=== PATIENT | male | born 1970 | race Caucasian/White ===

== ENCOUNTER 2017-01-09 07:45 | Emergency (ER) | payer OTHER ==
[~2017-01-09] VITALS: Ht 195.6 cm; Wt 120.3 kg
[~2017-01-09 07:45] MED LIST: AMBIEN10 MG PO; AMBIEN5 MG PO; AMOXICILLIN PO; ASPIRIN81 M2 PO; BACTRIM,SEPT1 TABLET PO; BENTYL20 MG PO; CLINDAMYCIN HC300 MG PO; COUMADIN,JANTOV10 MG PO; COUMADIN,JANTOVE4 MG PO; COUMADIN,JANTOVE5 MG PO; COUMADIN1 MG PO; COUMADIN2.5 MG PO; COUMADIN7.5 MG PO; ENDOCET 10-3251 EACH; ENDOCET 5-3251 EACH PO; FENTANYL1 EAC5; LISINOPRIL10 MG PO; LOVENOX120 MG/0.8 SC; MIRALAX17 GM PO; NOHOMEMEDS; OXYCODONE HCL15 MG PO; PERCOCET 5-3251 EACH PO; PERCOCET 5/31 TABLET PO; PREDNISONE20 MG PO; PROBIOTIC1 EAC1 PO; TRAMADOL HCL100 MG PO; TRAMADOL HCL50 MG; TRAMADOL HCL50 MG PO; VALIUM5 MG PO; WARFARIN SODIUM4 MG; WARFARIN SODIUM6 MG PO; ZESTRIL10 MG PO
[2017-01-09] MEDS ORDERED: PERCOCET 5/31 TABLET PO (08:31)
[2017-01-09 08:45] VITALS: BP 139/90
[2017-01-09] MEDS ORDERED: CYCLOBENZAPRINE10 MG PO (09:30)
== END 2017-01-09 09:30 | disposition home or self-care (01) ==
LOC: EME 07:45
DX: S02.5XXA Fracture of tooth (traumatic), initial encounter for closed fracture (principal); X58.XXXA Exposure to other specified factors, initial encounter; Y93.89 Activity, other specified
CPT/HCPCS: 99281; 99284

== ENCOUNTER 2017-03-24 23:56 | Emergency (ER) | payer OTHER ==
[~2017-03-24] VITALS: Ht 195.6 cm; Wt 120.2 kg
[~2017-03-24 23:56] MED LIST changes: +CYCLOBENZAPRINE10 MG PO
[2017-03-24 23:57] VITALS: BP 129/95
[2017-03-25] MEDS ORDERED: MOTRIN600 MG PO (00:36)
[2017-03-25] MEDS ORDERED: AUGMENTIN875 MG PO (00:36)
== END 2017-03-25 00:49 | disposition home or self-care (01) ==
LOC: EME 23:56 → EXP 23:56
DX: K14.0 Glossitis (principal); I10 Essential (primary) hypertension; Z86.711 Personal history of pulmonary embolism; Z86.718 Personal history of other venous thrombosis and embolism; Z86.73 Personal history of transient ischemic attack (TIA), and cerebral infarction without residual deficits; F17.200 Nicotine dependence, unspecified, uncomplicated
CPT/HCPCS: 99281; 99283

== ENCOUNTER 2017-09-07 20:08 | Emergency (ER) | payer OTHER ==
[~2017-09-07] VITALS: Ht 195.6 cm; Wt 114.5 kg
[~2017-09-07 20:08] MED LIST changes: +AUGMENTIN875 MG PO; +MOTRIN600 MG PO
[2017-09-07] MEDS ORDERED: PERCOCET 5/31 TABLET PO (22:29)
[2017-09-07 22:46] VITALS: BP 119/92
== END 2017-09-07 23:48 | disposition home or self-care (01) ==
LOC: EME 20:08
PROC: 2W3RX1Z Immobilization of Left Lower Leg using Splint (ICD-10-PCS; principal; 2017-09-07)
DX: S82.302A Unspecified fracture of lower end of left tibia, initial encounter for closed fracture (principal); W13.2XXA Fall from, out of or through roof, initial encounter; I10 Essential (primary) hypertension; Z86.718 Personal history of other venous thrombosis and embolism; Z86.711 Personal history of pulmonary embolism; Z86.73 Personal history of transient ischemic attack (TIA), and cerebral infarction without residual deficits; Z98.1 Arthrodesis status; Z79.01 Long term (current) use of anticoagulants; F17.200 Nicotine dependence, unspecified, uncomplicated
CPT/HCPCS: 73590; 99281; 99285

== ENCOUNTER 2017-12-11 19:29 | Emergency (ER) | payer OTHER ==
[~2017-12-11] VITALS: Ht 195.6 cm; Wt 116.8 kg
[2017-12-11 19:35] VITALS: BP 119/83
== END 2017-12-11 19:37 | disposition left against medical advice (07) ==
LOC: EME 19:29
DX: K08.89 Other specified disorders of teeth and supporting structures (principal); Z53.21 Procedure and treatment not carried out due to patient leaving prior to being seen by health care provider

== ENCOUNTER 2018-02-08 15:49 | Emergency (ER) | payer OTHER ==
[~2018-02-08] VITALS: Ht 195.6 cm; Wt 116.4 kg
[2018-02-08 16:25] LABS: HEMATOCRIT 48.6 % (38.0-50.0); HEMOGLOBIN 16.7 G/DL (12.5-16.6); MCH 29.2 PG (29.0-34.0); MCHC 34.4 G/DL (30.0-36.0); MCV 85.1 FL (86-99); PLATELET COUNT 250 K/uL (156-360); RBC DIS.WIDTH-CV 14.1 % (11.8-14.6); RBC DIS.WIDTH-SD 42.9 % (39-53); RED BLOOD COUNT 5.71 M/uL (4.00-5.50); WHITE BLOOD COUNT 18.4 K/uL (4.1-10.2)
[2018-02-08 16:35] LABS: ALBUMIN 4.1 g/dL (3.2-4.8)
[2018-02-08 16:36] LABS: CHLORIDE 112 mEq/L (99-109); POTASSIUM 4.2 mEq/L (3.7-5.4); SODIUM 145 mEq/L (136-147)
[2018-02-08 16:38] LABS: GLUCOSE 134 mg/dL (70-99); TOTAL PROTEIN 7.8 g/dL (6.4-8.3)
[2018-02-08 16:40] LABS: TOTAL BILIRUBIN 0.9 mg/dL (0.0-1.0)
[2018-02-08 16:41] LABS: ALKALINE PHOSPHATASE 105 IU/L (3-129)
[2018-02-08 16:42] LABS: CREATININE 1.6 mg/dL (0.6-1.3); GFR ESTIMATE (CALCULATED) 49 mL/min/ (58.99-99999)
[2018-02-08 16:43] LABS: AST (GOT) 80 IU/L (2-34); UREA NITROGEN (BUN) 25 mg/dL (9-23)
[2018-02-08 16:44] LABS: ALT (GPT) 183 IU/L (3-49)
[2018-02-08] MEDS ORDERED: OXYCODONE HCL5 MG PO (19:28)
[2018-02-08 20:01] VITALS: BP 121/77
== END 2018-02-08 20:04 | disposition home or self-care (01) ==
LOC: EME 15:49
PROVIDERS: Emergency Medicine
DX: S12.501D Unspecified nondisplaced fracture of sixth cervical vertebra, subsequent encounter for fracture with routine healing (principal); S01.112D Laceration without foreign body of left eyelid and periocular area, subsequent encounter; V89.2XXD Person injured in unspecified motor-vehicle accident, traffic, subsequent encounter; I10 Essential (primary) hypertension; Z86.73 Personal history of transient ischemic attack (TIA), and cerebral infarction without residual deficits; Z86.718 Personal history of other venous thrombosis and embolism; Z86.711 Personal history of pulmonary embolism; Z79.01 Long term (current) use of anticoagulants; F17.200 Nicotine dependence, unspecified, uncomplicated; Z98.1 Arthrodesis status
CPT/HCPCS: 70496; 70498; 71046; 72125; 73130; 80053; 85027; 99281; 99285; J7030

== ENCOUNTER 2018-03-29 02:00 | Emergency (ER) | payer OTHER ==
[~2018-03-29] VITALS: Ht 195.6 cm; Wt 122.9 kg
[~2018-03-29 02:00] MED LIST changes: +OXYCODONE HCL5 MG PO
[2018-03-29] MEDS ORDERED: INDOCIN50 MG PO (03:22)
[2018-03-29 03:47] VITALS: BP 145/100
== END 2018-03-29 03:47 | disposition home or self-care (01) ==
LOC: EME 02:00
DX: M24.812 Other specific joint derangements of left shoulder, not elsewhere classified (principal); S05.02XA Injury of conjunctiva and corneal abrasion without foreign body, left eye, initial encounter; W17.89XA Other fall from one level to another, initial encounter; Z79.01 Long term (current) use of anticoagulants; Z86.718 Personal history of other venous thrombosis and embolism; F17.200 Nicotine dependence, unspecified, uncomplicated
CPT/HCPCS: 73030; 99281; 99284